=== PATIENT | female | born 1975 | race Caucasian/White ===

== ENCOUNTER 2021-02-08 09:53 | Outpatient (REF) | payer BC, SELFPAY ==
--- NOTE | ~2021-02-08 | MM_ITS ---
EXAMINATION: MM SCREENING DIGITAL BREAST TOMOSYNTHESIS, BILATERAL CLINICAL INFORMATION: Screening. Asymptomatic. The lifetime risk of breast cancer based on the Tyrer-Cuzick Model is 11%. COMPARISON: Mammography: 12/15/2019, 07/21/2018, 06/12/2017, 06/03/2016 TECHNIQUE: Digital breast tomosynthesis is performed in both the craniocaudal and mediolateral oblique views along with computer-aided detection (CAD). Synthesized 2D images are generated from the tomosynthesis. FINDINGS: There are scattered areas of fibroglandular density (ACR BI-RADS breast composition Category b). There are no significant masses, abnormal calcifications, or other abnormalities. Parenchymal pattern is similar to prior studies. No developing density. The skin contours are smooth. No significant changes. MM/MM tomosynthesis screening BI IMPRESSION: No mammographic evidence of malignancy. ASSESSMENT: BI-RADS 1: Negative RECOMMENDATION: Routine annual mammography screening. This patient's information was entered into a reminder system with a target due date for their next mammogram.
== END 2021-02-08 09:54 | disposition home or self-care (01) ==
LOC: HO.MAMMO 09:53
PROVIDERS: PCP Student in an Organized Health Care Education/Training Program; Visit Provider Student in an Organized Health Care Education/Training Program
DX: Z12.31 Encounter for screening mammogram for malignant neoplasm of breast (principal)
CPT/HCPCS: 77063; 77067

== ENCOUNTER 2022-02-24 12:49 | Outpatient (REF) | payer BC, SELFPAY ==
--- NOTE | ~2022-02-24 | MM_ITS ---
EXAMINATION: MM SCREENING DIGITAL BREAST TOMOSYNTHESIS, BILATERAL CLINICAL INFORMATION: Screening. Asymptomatic. The lifetime risk of breast cancer based on the Tyrer-Cuzick Model is 16%. COMPARISON: Mammography: 02/08/2021, 12/15/2019, 07/21/2018 TECHNIQUE: Digital breast tomosynthesis is performed in both the craniocaudal and mediolateral oblique views along with computer-aided detection (CAD). Synthesized 2D images are generated from the tomosynthesis. FINDINGS: There are scattered areas of fibroglandular density (ACR BI-RADS breast composition Category b). There are no significant masses, abnormal calcifications, or other abnormalities. Parenchymal pattern borders on predominantly fatty. Background stromal markings are stable. No significant changes. MM/MM tomosynthesis screening BI IMPRESSION: No mammographic evidence of malignancy. ASSESSMENT: BI-RADS 1: Negative RECOMMENDATION: Routine annual mammography screening. This patient's information was entered into a reminder system with a target due date for their next mammogram.
== END 2022-02-24 12:50 | disposition home or self-care (01) ==
LOC: HO.MAMMO 12:49
PROVIDERS: Visit Provider Student in an Organized Health Care Education/Training Program
DX: Z12.31 Encounter for screening mammogram for malignant neoplasm of breast (principal)
CPT/HCPCS: 77063; 77067

== ENCOUNTER 2023-03-11 11:35 | Outpatient (REF) | payer OTHER, SELFPAY ==
[2023-03-12 10:54] LABS: Lyme Abs Screen <0.90 index
[2023-03-17 02:34] LABS: IgA 180 mg/dL (47-310); IgG 1385 mg/dL (600-1640); IgM 48 mg/dL (50-300)
== END 2023-03-11 11:36 | disposition home or self-care (01) ==
LOC: HO.LAB 11:35
PROVIDERS: PCP Internal Medicine; Visit Provider Psychiatry & Neurology Neurology
DX: G62.9 Polyneuropathy, unspecified (principal)
CPT/HCPCS: 36415; 82784; 86334; 86617; 86618

== ENCOUNTER 2023-03-24 09:04 | Outpatient (REF) | payer OTHER, SELFPAY | END 2023-03-24 09:05 | disposition home or self-care (01) | LOC: HO.MAMMO 09:04 | PROVIDERS: PCP Internal Medicine; Visit Provider Internal Medicine | DX: Z12.31 Encounter for screening mammogram for malignant neoplasm of breast (principal) | CPT/HCPCS: 77063; 77067 ==

== ENCOUNTER → 2023-03-24 09:45 | Outpatient (BNV) | payer OTHER, SELFPAY | PROVIDERS: PCP Internal Medicine; Visit Provider Radiology Diagnostic Radiology | DX: Z12.31 Encounter for screening mammogram for malignant neoplasm of breast (principal) | CPT/HCPCS: 77063; 77067 ==

== ENCOUNTER 2024-03-15 08:12 | Outpatient (AMB) | payer OTHER, SELFPAY ==
--- NOTE | 2024-03-15 08:26 | MHC.OFFVIS ---
Vital Signs 03/15/24 08:35 Height 4 ft 8 in Weight 127 lb BMI 28.5 BP 120/78 Intake Visit Reasons: annual/Menopause ?/DO NOT RS x 2 Intake Note: Patient experiencing menopause symptoms last few months, tingling in legs, mood swings, brain fog, occasional heat flashes. Last pap smear approx. 2 years ago, normal pap smears. Regulatory Analyst: Regulatory Analyst Present (Maggy) Accompanied by: Self / Same As Patient Allergies doxepin [DOXEPIN] Allergy (Severe, Verified 03/15/24 08:34) THROAT SWELLING Penicillins Allergy (Verified 03/15/24 08:34) Itching SEAFOOD Allergy (Severe, Uncoded 12/14/19 17:02) HIVES, THROAT SWELLING seafood Allergy (Unknown, Uncoded 03/15/24 08:34) Anaphylaxis HPI Comments Details: Presenting for annual exam complaining of irregular menstrual cycles over the last few months Last mammogram was in 03/20 BI-RADS 2, the patient is scheduled for another screening mammogram on 03/27 No previous screening colonoscopy Last co testing? PFSH Medical History Herpes Surgical History Hx of cholecystectomy Family History Paternal Aunt Breast cancer Father Thyroid cancer Mother Bladder cancer Female Reproductive History Menstrual Duration of menses: <3 days Date of last menstrual period: 03/03/24 Total pregnancies: 0 Date of Mammogram: 03/24/23 (bi rad 1) Review of Systems Const All systems reviewed & are unremarkable except as noted in HPI and below Card Reports as per HPI Resp Reports as per HPI GI Reports as per HPI and Reports no additional complaints Reports as per HPI Physical Exam Const General: cooperative, healthy appearing and comfortable Chest Chest palpation & inspection: normal inspection of the chest and normal palpation of entire chest wall Breast/axilla inspection: normal inspection of the breasts and normal inspection of the axillae Breast/axilla palpation: normal palpation of the breasts, normal palpation of the axillae and no axillary lymphadenopathy Resp Effort & Inspection: normal respiratory effort Auscultation: clear to auscultation bilaterally Percussion: percussion normal Cardio Palpation: normal PMI Rate: regular rate Rhythm: regular rhythm Heart sounds: no murmurs and no rubs Peripheral pulses: Peripheral pulses 2+ throughout GI Inspection: Yes normal to inspection Palpation (GI): Soft to palpation, nontender, no guarding, not rigid and No hepatosplenomegaly present Percussion: Yes normal to percussion Auscultation: normal bowel sounds Rectal Exam - Female: deferred General: Yes bladder normal to palpation External Female Exam: No lesion Speculum Exam - Vagina: normal appearance of the vagina, normal palpation, normal vaginal discharge and not erythematous Speculum Exam - Cervix: normal appearance of the cervix and normal palpation Bimanual exam- vagina & uterus: normal bimanual exam, normal palpation, uterine size normal, bladder normal to palpation, consistency normal and normal palpation Bimanual Exam- Adnexa, other: normal adnexae, no masses and no tenderness Assessment & Plan Assessment & Plan (1) Well woman exam: Code(s): Z01.419 - Encounter for gynecological examination (general) (routine) without abnormal findings Category: Medical Plan: Co testing done. Counseled the patient about the recommended dietary allowance of 1200 mg of Calcium & 600 IU of vitamin D. Mammogram scheduled on 03/27/2024. The patient was referred to GI for screening colonoscopy . The patient was instructed to perform monthly self-breast exams and schedule annual exam in a year. All questions answered and the patient verbalized understanding. (2) Abnormal uterine bleeding (AUB): Code(s): N93.9 - Abnormal uterine and vaginal bleeding, unspecified Category: Medical Plan: Co testing done, GC and chlamydia taken CBC, TSH, FSH/LH, HCG, and pelvic ultrasound ordered. Discussed with the patient the different causes of abnormal bleeding including thyroid disorders, uterine and ovarian pathology, endometrial hyperplasia, carcinoma and other potential causes. Discussed with the patient the work up including CBC (to r/o anemia), TSH, FSH/LH, pelvic Ultrasound, endometrial biopsy to r/o endometrial pathology. All questions answered and the patient verbalized understanding. Instructed the patient to schedule an appointment for an endometrial biopsy in 2 weeks. Orders: Orders HCG Quantitative Today N93.9 - Abnormal uterine and vaginal bleeding, unspecified Lutenizing Hormone Today N93.9 - Abnormal uterine and vaginal bleeding, unspecified Follicle Stimulating Hormone Today N93.9 - Abnormal uterine and vaginal bleeding, unspecified TSH reflex Free T4 Today N93.9 - Abnormal uterine and vaginal bleeding, unspecified Complete Blood Count no Diff Today N93.9 - Abnormal uterine and vaginal bleeding, unspecified US pelvic and transvaginal Today N93.9 - Abnormal uterine and vaginal bleeding, unspecified Referrals Gastroenterology Referral Z12.11 - Encounter for screening for malignant neoplasm of colon Coding Level of Care Code Est Pt Level 3 (35407) New Pt Prev Care 40-64y(72332) Diagnoses Well woman exam Z01.419 Abnormal uterine bleeding (AUB) N93.9
[2024-03-15 08:35] VITALS: BP 120/78; BMI 28.5
== END 2024-03-15 08:54 | disposition home or self-care (01) ==
PROVIDERS: PCP Internal Medicine; Visit Provider Obstetrics & Gynecology
DX: Z01.419 Encounter for gynecological examination (general) (routine) without abnormal findings (principal); N93.9 Abnormal uterine and vaginal bleeding, unspecified
CPT/HCPCS: 99213; 99386; 99459

== ENCOUNTER 2024-03-15 08:12 | Outpatient (REF) | payer OTHER, SELFPAY ==
[2024-03-15 09:57] LABS: Hematocrit 40.8 % (37.0-47.0); Hemoglobin 14.5 g/dl (12.0-16.0); Mean Corpuscular HGB Conc 35.5 g/dl (31.0-35.0); Mean Corpuscular Hemoglobin 30.9 pg (27.0-33.0); Platelet Count 246 X10*3/uL (160-400); Red Blood Count 4.69 X10*6/uL (4.20-5.50); Red Cell Distribution Width 12.1 % (11.0-16.0); White Blood Count 5.1 X10*3/uL (4.8-10.8)
[2024-03-15 10:43] LABS: HCG Quantitative < 2 mIU/mL; TSH reflex Free T4 0.96 uIU/mL (0.32-4.0)
[2024-03-15 18:34] LABS: CT PCR NOT DETECTED (Not Detect.); NG PCR NOT DETECTED (Not Detect.)
[2024-03-16 09:23] LABS: Follicle Stimulating Hormone 17.3 mIU/mL
[2024-03-16 10:54] LABS: HPV 16,18/45 See PAP report
== END 2024-03-15 08:13 | disposition home or self-care (01) ==
LOC: HO.LNP 08:12
PROVIDERS: PCP Internal Medicine; Visit Provider Obstetrics & Gynecology
DX: Z01.419 Encounter for gynecological examination (general) (routine) without abnormal findings (principal); N93.9 Abnormal uterine and vaginal bleeding, unspecified
CPT/HCPCS: 83001; 83002; 84443; 84702; 85027; 87491; 87591; 87624; 88175

== ENCOUNTER 2024-03-15 09:07 | Outpatient (REF) | payer OTHER, SELFPAY | END 2024-03-15 09:08 | disposition home or self-care (01) | LOC: HO.LAB 09:07 | PROVIDERS: PCP Internal Medicine; Visit Provider Obstetrics & Gynecology | DX: Z13.89 Encounter for screening for other disorder (principal) ==

== ENCOUNTER 2024-03-16 13:40 | Outpatient (REF) | payer OTHER, SELFPAY | END 2024-03-16 13:41 | disposition home or self-care (01) | LOC: HO.HMGCX 13:40 | PROVIDERS: PCP Internal Medicine; Visit Provider Obstetrics & Gynecology | DX: N93.9 Abnormal uterine and vaginal bleeding, unspecified (principal) | CPT/HCPCS: 76830; 76856 ==

== ENCOUNTER 2024-03-27 08:47 | Outpatient (REF) | payer OTHER, SELFPAY | END 2024-03-27 08:48 | disposition home or self-care (01) | LOC: HO.MAMMO 08:47 | PROVIDERS: PCP Internal Medicine; Visit Provider Internal Medicine | DX: Z12.31 Encounter for screening mammogram for malignant neoplasm of breast (principal) | CPT/HCPCS: 77063; 77067 ==

== ENCOUNTER → 2024-03-27 09:00 | Outpatient (BNV) | payer OTHER, SELFPAY | PROVIDERS: PCP Internal Medicine; Visit Provider Internal Medicine | DX: Z12.31 Encounter for screening mammogram for malignant neoplasm of breast (principal) | CPT/HCPCS: 77063; 77067 ==

== ENCOUNTER 2024-04-27 08:57 | Outpatient (REF) | payer OTHER, SELFPAY ==
--- OUTSIDE RECORDS SUMMARY | 2024-04-27 12:50 | XMS_ITS | Encounter Summary ---
Author Organization [employer] Address [address] [place] [address] [address] [place] [address] Care Team Providers Care Wilton Weaver Name Role Phone Katie Mcallister MD Primary Care Provider Encounter Details Date Type Department Care Team (Late st Contact Info) Description 03/05/2022 Abstract [facility] [address] [place] [address] Provider, MD Racheal Social History Tobacco Use Types Packs/Day Years Used Date Smoking Tobacco: Never Assessed Comments Unknown Sex and Gender Information Value Date Recorded Sex Assigned at Female 01/26/2022 10:20 AM EDT Legal Sex Female 10:20 AM EDT Gender Identity Female 01/26/2022 10:20 AM EDT Sexual Orientation Straight 01/26/2022 10 :20 AM EDT documented as of this encounter Plan of Treatment Not on file documented as of this encounter Visit Diagnoses Not on filedocumented in this encounter Care Teams Wilton Weaver Relationship Specialty Start Date End Date Katie Mcallister MD [address] [place] [address] PCP - General Family Medicine 03/11/12 07/20/23 documented as of this encounter
--- OUTSIDE RECORDS SUMMARY | 2024-04-27 12:50 | XMS_ITS | Clinical Summary ---
Author Organization [employer] Address [address] [place] [address] [address] [place] [address] Care Team Providers Care Dipper Machine Operator Name Role Phone Unavailable Primary Care Provider Unavailabl e Social History Tobacco Use Types Packs/Day Years Used Date Smoking Tobacco: Never Assessed Comments Unknown Sex and Gender Information Value Date Recorded Sex Assigned at Female 01/26/2022 10:20 AM EDT Legal Sex Female 10:20 AM EDT Gender Identity Female 01/26/2022 10:20 AM EDT Sexual Orientation Straight 01/26/2022 10 :20 AM EDT Last Filed Vital Signs Vital Sign Reading Time Taken Comments Blood Pressure 126/84 01/22/2022 12:10 AM EDT Pulse 80 01/22/2022 12:10 AM EDT Temperature - - Respiratory Rate - - Oxygen Saturation - - Inhaled Oxygen Concentration - - Weight 58.1 kg (128 lb) 01/22/2022 12:10 AM EDT Height 144.5 cm (4' 8.9 ) 01/22/2022 12:10 AM ED T Body Mass Index 27.79 01/22/2022 12:10 AM EDT Plan of Treatment Health Maintenance Due Date Last Done Comments CT Colonography 1975 Colonoscopy 1975 Colorectal Cancer Screening 1975 Depression Screening 1975 FIT DNA/Cologuard 1975 FIT 1975 FOBT 1975 Sigmoidoscopy 1975 Alcohol/Substance Use Screening 1987 Tobacco Screening 1987 Family Planning (PISQ) 1990 Hepatitis B Vaccines (1 of 3 - 19+ 3-dose series) 1994 Pap Smear 1996 Cervical Cancer Screening 2005 HPV/Cotest 2005 COVID-19 Vaccine ( season) 2023 05/30/2021, 07/02/2020 Influenza Vaccine (#1) 2023 Mammogram 02/25/2024 02/24/2022, 01/27, 12/18/2019, Additional history exists Zoster Vaccines (1 of 2) 2025 DTaP/Tdap/Td Vaccines (2 - Td or Tdap) 08/19/2027 08/18/2017 RSV Patients and Patients Aged 60 years or older (1 - 1-dose 75+ series) 2050 HIB Vaccines Aged Out No longer eligi ble based on patient's age to complete this topic HPV Vaccines Aged Out No longer eligi ble based on patient's age to complete this topic Hepatitis A Vaccines Aged Out No long er eligible based on patient's age to complete this topic IPV Vaccines Aged Out No longer eligi ble based on patient's age to complete this topic Meningococcal Vaccine Aged Out No kelsea trinh eligible based on patient's age to complete this topic Pneumococcal Vaccine: Pediatrics (0 to 5 Years) and At-Risk Patients (6 to 49) Years) Aged Out No longer eligible based on patient's age to complete this topic RSV under 20 months Aged Out No longe r eligible based on patient's age to complete this topic Rotavirus Vaccines Aged Out No longer eligible based on patient's age to complete this topic Procedures Procedure Name Priority Date/Time Associated Diagnosis Comments BI MAMMOGRAM SCREENING TOMOSYNTHESIS BILATERAL Routine 02/24/2022 1:10 PM EST from Last 3 Months or Most Recently Relevant to Health Maintenance Results * BI Mammogram Screening Tomosynthesis Bilateral (02/24/2022 1:10 PM EST) Anatomical Region Laterality Modality Breast Bilateral Mammography 02/24/2022 1:10 PM EST Narrative 02/26/2022 8:03 AM EST ? [facility] ? [address] ?[place] [address] ? Mammography Report ? Signed ? Patient: Doan Mata,Aitza M ?MR#: [id number] ?? [id number] ? : 1975 ?Acct:[id number] ? Age/Sex: 46 / F ?ADM Date: 11/29/22 ? Loc: HO.MAMMO ? Attending Dr: Katie Mcallister MD ? Ordering Physician: Katie Mcallister MD ?Results: 1Negati ?? ve ? Date of Service: 02/24/22 ?Follow Up: 1 Year From Orig ?? inal Mammogram ? Procedure(s): MM tomosynthesis screening BI ?? Accession Number(s): [id number] ? cc: Katie Mcallister MD ? EXAMINATION: ?? MM SCREENING DIGITAL BREAST TOMOSYNTHESIS, BILATERAL ? CLINICAL INFORMATION: ? Screening. Asymptomatic. ? The lifetime risk of breast cancer based on the Tyrer-Cuzick Model is ?? 16%. ? COMPARISON: ?? Mammography: 02/08/2021, 12/15/2019, 07/21/2018 ? TECHNIQUE: ?? Digital breast tomosynthesis is performed in both the craniocaudal and ?? mediolateral oblique views along with computer-aided detection (CAD). ?? Synthesized 2D images are generated from the tomosynthesis. ? FINDINGS: ?? There are scattered areas of fibroglandular density (ACR BI-RADS breast ?? composition Category b). ? There are no significant masses, abnormal calcifications, or other ?? abnormalities. ?? Parenchymal pattern borders on predominantly fatty. ?? Background stromal markings are stable. No significant changes. ? MM/MM tomosynthesis screening BI ?? IMPRESSION: ?? No mammographic evidence of malignancy. ? ASSESSMENT: ? BI-RADS 1: Negative ? RECOMMENDATION: ?? Routine annual mammography screening. ? This patient's information was entered into a reminder system with a ?? target due date for their next mammogram. ? Dictated By: ?Ric John MD ? Signed By: ?<Electronically signed by Ric John MD in OV> ?02/26/22 08 ? DD/ 1310 ? TD/TT: ? Operational Meteorologist: SWIFT ? Procedure Note Donrasheedater, Image - 02/28/2022 [facility] [address] [place] [address] Mammography Report Signed Patient: Alysa Mcdonald MMR#: [id number] : 1975Acct:[id number] Age/Sex: 46 / FADM Date: 02/24/22 Loc: HO.MAMMO Attending Dr: Katie Mcallister MD Ordering Physician: Katie Mcallister MDResults: 1Negati ve Date of Service: 02/24/22Follow Up: 1 Year From Orig inal Mammogram Procedure(s): MM tomosynthesis screening BI Accession Number(s): [id number] cc: Katie Mcallister MD EXAMINATION: MM SCREENING DIGITAL BREAST TOMOSYNTHESIS, BILATERAL CLINICAL INFORMATION: Screening. Asymptomatic. The lifetime risk of breast cancer based on the Tyrer-Cuzick Model is 16%. COMPARISON: Mammography: 02/08/2021, 12/15/2019, 07/21/2018 TECHNIQUE: Digital breast tomosynthesis is performed in both the craniocaudal and mediolateral oblique views along with computer-aided detection (CAD). Synthesized 2D images are generated from the tomosynthesis. FINDINGS: There are scattered areas of fibroglandular density (ACR BI-RADS breast composition Category b). There are no significant masses, abnormal calcifications, or other abnormalities. Parenchymal pattern borders on predominantly fatty. Background stromal markings are stable. No significant changes. MM/MM tomosynthesis screening BI IMPRESSION: No mammographic evidence of malignancy. ASSESSMENT: BI-RADS 1: Negative RECOMMENDATION: Routine annual mammography screening. This patient's information was entered into a reminder system with a target due date for their next mammogram. Dictated By: Ric John MD Signed By: <Electronically signed by Ric John MD in OV> 02/26/22 0801 DD/ 1310 TD/TT: Operational Meteorologist: SWIFT us Katie Mcallister MD IMG BI PROCEDURES Final Result from Last 3 Months or Most Recently Relevant to Health Maintenance
== END 2024-04-27 08:58 | disposition home or self-care (01) ==
LOC: HO.LNP 08:57
PROVIDERS: PCP Internal Medicine; Visit Provider Obstetrics & Gynecology
DX: N93.9 Abnormal uterine and vaginal bleeding, unspecified (principal)
CPT/HCPCS: 58100; 88305

== ENCOUNTER 2024-05-18 11:20 | Outpatient (AMB) | payer OTHER, SELFPAY ==
--- NOTE | 2024-05-18 11:23 | A.OFFVIS_ITS ---
Vital Signs 05/18/24 11:28 Height 4 ft 8 in Weight 127 lb BMI 28.5 Intake Visit Reasons: EMB results Fur Joiner: Fur Joiner Present Accompanied by: Self / Same As Patient Allergies doxepin [DOXEPIN] Allergy (Severe, Verified 05/18/24 11:25) THROAT SWELLING Penicillins Allergy (Verified 05/18/24 11:25) Itching SEAFOOD Allergy (Severe, Uncoded 12/14/19 17:02) HIVES, THROAT SWELLING seafood Allergy (Unknown, Uncoded 03/15/24 08:34) Anaphylaxis HPI Comments Details: The patient is presenting for follow-up to discuss the results of her abnormal uterine bleeding workup and options of treatment. The following workup was done.: H&H= 14.5/40.8 TSH, hCG, GC and chlamydia were negative. FSH = 17.3 in the premenopausal range, LH=15 in the postmenopausal Endometrial biopsy pathology showed the following: Endometrium, biopsy: Fragments of inactive endometrium with stromal and glandular breakdown; negative for atypia, hyperplasia or malignancy Co testing was done was negative. Mammogram was BI-RADS 1. Pelvic ultrasound showed the following: Uterus: The uterus is anteverted and measures 7.6 x 3.5 x 4.9 cm. The double wall endometrial thickness is 0.7 mm. The uterus is smooth in contour and has normal myometrial echogenicity. Left intramural fibroid measures 1.2 cm. Adnexa: Both ovaries are visualized. There is normal color flow to the adnexa. There is no ovarian torsion. There is no pelvic ascites or fluid collection. Right ovary measures 2.8 x 2.4 x 1.5 cm. Corpus luteum measuring 1.3 cm is noted. Left ovary measures 2.3 x 1.1 x 1.3 cm. [facility] Medical History Herpes Surgical History Hx of cholecystectomy Family History Paternal Aunt Breast cancer Father Thyroid cancer Mother Bladder cancer Review of Systems Const All systems reviewed & are unremarkable except as noted in HPI and below Reports as per HPI and Reports no additional complaints GI Reports no additional complaints Reports no additional complaints Physical Exam Vital Signs: BMI result Body Mass Index 28.5 Assessment & Plan Assessment & Plan (1) Abnormal uterine bleeding (AUB): Code(s): N93.9 - Abnormal uterine and vaginal bleeding, unspecified Category: Medical Plan: Discussed with the patient the results of the work up done and options of treatment including BCP's, Mirena IUD, endometrial ablation and hysterectomy. All pros, cons, risks and benefits if each option was discussed with the patient and the patient decided to think about it and get back to us. All questions answered the patient verbalized understanding. (2) Uterine myoma: Code(s): D25.9 - Leiomyoma of uterus, unspecified Category: Medical Plan: Discussed with the patient the findings on pelvic ultrasound & the risk of myosarcoma; discussed with the patient the options of treatment including expectant management versus hysterectomy; the pros and cons, risks benefits of each approach were discussed with the patient including the fact that in cases of myosarcoma, surgical treatment can lead to early diagnosis and positively affects the prognosis; after further discussion, the patient decided to proceed with expectant management. Will repeat pelvic ultrasound periodically. Instructions given to patient to call in case any of the following occurs: pressure symptoms, abnormal uterine bleeding, pelvic pain; and to schedule a six-months pelvic ultrasound (order placed) and a follow-up appointment . All questions answered, the patient verbalized understanding and agreed with the plan . Orders: Orders US pelvic and transvaginal 6 Months D25.9 - Leiomyoma of uterus, unspecified Coding Level of Care Code Est Pt Level 3 (40464) Diagnoses Abnormal uterine bleeding (AUB) N93.9 Uterine myoma D25.9
[2024-05-18 11:28] VITALS: BMI 28.5
--- OUTSIDE RECORDS SUMMARY | 2024-05-18 12:39 | XMS_ITS | Clinical Summary ---
Author Organization [facility] Address [address] [place] [address] Phone Care Team Providers Care Caseworker Intake Name Role Phone Unavailable Primary Care Provider Unavailabl e Encounters Date Type Department Care Team Description 05/18/2024 8:30 AM EST Hospital Encounter [facility] MRI [address] [place] [address] Pain in left ankle and joints of left foot from Last 3 Months Social History Tobacco Use Types Packs/Day Years Used Date Smoking Tobacco: Never Assessed Comments Unknown Sex and Gender Information Value Date Recorded Sex Assigned at Not on file Legal Sex Female 8:25 AM EST Gender Identity Not on file Sexual Orientation Not on file Plan of Treatment Health Maintenance Due Date Last Done Comments Hepatitis B Vaccines (1 of 3 - 19+ 3-dose series) 1994 Cervical Cancer Screening: P ap Smear 1996 COVID-19 Vaccine (2023-2 5 season) 2023 05/30/2021, 07/02/2020 Influenza Vaccine (#1) 2023 Breast Cancer Screening 02/25/2024 02/24/2022 Colorectal Cancer Screening: Colonoscopy 05/18/2024 Depression Screening 05/18/2024 HIV Screening 05/18/2024 Hepatitis C Screening 05/18/2024 Social Influencers of Health Screening 05/18/2024 DTaP,Tdap,and Td Vaccines (2 - Td or Tdap) 08/19/2027 08/18/2017 HIB Vaccines Aged Out No longer eligi [...] on patient's age to complete this topic MMR Vaccines Aged Out No longer eligi ble based on patient's age to complete this topic Meningococcal ACWY Vaccine Aged Out N o longer eligible based on patient's age to complete this topic Meningococcal B Vacine Aged Out No lo nger eligible based on patient's age to complete this topic Pneumococcal Vaccine: Pediatrics (0 to 5 Years) and At-Risk Patients (6 to 64 Years) Aged Out No longer eligible b ased on patient's age to complete this topic RSV Immunization Patients Under 20 months Aged Out No longer eligible b ased on patient's age to complete this topic Varicella Vaccines Aged Out No longer eligible based on patient's age to complete this topic
--- OUTSIDE RECORDS SUMMARY | 2024-05-18 12:39 | XMS_ITS | Clinical Summary ---
Author Organization [employer] Address [address] [place] [address] [address] [place] [address] Care Team Providers Care Equipment Sales Specialist Name Role Phone Unavailable Primary Care Provider [...] EST Narrative 02/26/2022 8:03 AM EST ? [facility] ? [address] ?[place] [address] ? Mammography Report ? Signed ? Patient: Doan Mata,Aitza M ?MR#: [id number] ?? [id number] ? : 1975 ?Acct:[id number] ? Age/Sex: 46 / F ?ADM Date: 11/29/22 ? Loc: HO.MAMMO ? Attending Dr: Katie Mcallister MD ? Ordering Physician: Katie Mcallister MD ?Results: 1Negati ?? ve ? Date of Service: 02/24/22 ?Follow Up: 1 Year From Orig ?? inal Mammogram ? Procedure(s): MM tomosynthesis screening BI ?? Accession Number(s): [id number] ? cc: Katie Mcallister MD ? EXAMINATION: [...] 08 ? DD/ 1310 ? TD/TT: ? Drill Sergeant: SWIFT ? Procedure Note Donrasheedater, Image - 02/28/2022 [facility] [address] [place] [address] Mammography Report Signed Patient: Alysa Mcdonald MMR#: [id number] : 1975Acct:[id number] Age/Sex: 46 / FADM Date: 02/24/22 Loc: HO.MAMMO Attending Dr: Katie Mcallister MD Ordering Physician: Katie Mcallister MDResults: 1Negati ve Date of Service: 02/24/22Follow Up: 1 Year From Orig inal Mammogram Procedure(s): MM tomosynthesis screening BI Accession Number(s): [id number] cc: Katie Mcallister MD EXAMINATION: MM SCREENING [...] in OV> 02/26/22 0801 DD/ 1310 TD/TT: Drill Sergeant: SWIFT us Katie Mcallister MD IMG BI PROCEDURES Final Result from Last 3 Months or Most Recently Relevant to Health Maintenance
--- OUTSIDE RECORDS SUMMARY | 2024-05-18 12:39 | XMS_ITS | Encounter Summary ---
[facility] Organization [facility] Address [address] [place] [address] Care Team Providers Care Filter Changer Name Role Phone Unavailable Primary Care Provider Unavailabl e Reason for Referral * Imaging (Routine) - Pending Review Specialty Diagnoses / Procedures Referred By Contac t Referred To Contact Radiology Diagnoses Pain in left ankle and joints of left foot Procedures MR Ankle wo Contrast Left Shirley Jon MD [address] [address] Phone: tel: [facility] Referral ID Status Reason Start Date Expiration Date V isits Requested Visits Authorized [id number] Pending Review 05/18/2024 05/18/2025 1 1 Reason for Visit * Imaging (Routine) - Pending Review Specialty Diagnoses / Procedures Referred By Contmarcello bahena Referred To Contact Radiology Diagnoses Pain in left ankle and joints of left foot Procedures MR Ankle wo Contrast Left Shirley Jon MD [address] [place] [address] Phone: tel: [facility] Referral ID Status Reason Start Date Expiration Date V isits Requested Visits Authorized [id number] Pending Review 05/18/2024 05/18/2025 1 1 Encounter Details Date Type Department Care Team (Latest Contact Info) Description 05/18/2024 8:30 AM EST Hospital Encounter [facility] MRI [address] [place] [id number] Pain in left ankle and joints of left foot Social History Tobacco Use Types Packs/Day Years Used Date Smoking Tobacco: Never Assessed Comments Unknown Sex and Gender Information Value Date Recorded Sex Assigned at Not on file Legal Sex Female 8:25 AM EST Gender Identity Not on file Sexual Orientation Not on file documented as of this encounter Plan of Treatment Pending Results Name Type Priority Associated Diagnoses Date /Time MR Ankle wo Contrast Left Imaging Routine Pain in left ankle and joints of left foot 05/18/2024 9:37 AM EST Scheduled Orders Name Type Priority Associated Diagnoses Orde r Schedule MR Ankle wo Contrast Left Imaging Routine Pain in left ankle and joints of left foot Once for 1 Occurrences starting 05/18/2024 until 05/18/2024 documented as of this encounter Visit Diagnoses Diagnosis Pain in left ankle and joints of left foot documented in this encounter
--- OUTSIDE RECORDS SUMMARY | 2024-05-18 12:39 | XMS_ITS | Encounter Summary ---
Author Organization [employer] Address [address] [place] [address] [address] [place] [address] Care Team Providers Care Epic Kaleidoscope Analyst Name Role Phone Katie Mcallister MD Primary Care Provider [phone] Encounter Details Date Type Department Care Team (Late st Contact Info) Description 03/05/[address] [facility] MEDICINE [address] [place] [address] Provider, MD Racheal Social History Tobacco Use [...] on filedocumented in this encounter Care Teams Epic Kaleidoscope Analyst Relationship Specialty Start Date End Date Katie Mcallister MD [address] [place] [address] PCP - General Family Medicine 03/11/12 07/20/23 documented as of this encounter
== END 2024-05-18 12:01 | disposition home or self-care (01) ==
PROVIDERS: PCP Internal Medicine; Visit Provider Obstetrics & Gynecology
DX: N93.9 Abnormal uterine and vaginal bleeding, unspecified (principal); D25.9 Leiomyoma of uterus, unspecified
CPT/HCPCS: 99213

== ENCOUNTER → 2024-05-18 11:20 | Outpatient (BNVA) | payer OTHER, SELFPAY | PROVIDERS: PCP Internal Medicine; Visit Provider Obstetrics & Gynecology ==

== ENCOUNTER 2024-10-05 09:58 | Outpatient (AMB) | payer OTHER, SELFPAY ==
--- NOTE | 2024-10-05 10:05 | A.OFFVIS_ITS ---
Vital Signs 10/05/24 10:13 Height 4 ft 8 in Weight 127 lb BMI 28.5 BP 114/58 L Blood Pressure Location Rt brachial Position Sitting Pulse 82 Pulse Source Pulse Oximeter Pulse Oximetry (%) 98 Oxygen Delivery Method Room Air Intake Visit Reasons: colo screening Intake Note: New pt for initial colo screening. CC; Pt denies any GI sx or concerns at this time. Belt Worker Required: No Accompanied by: Self / Same As Patient Allergies doxepin (DOXEPIN) Allergy (Severe, Verified 05/18/24 11:25) THROAT SWELLING Penicillins Allergy (Verified 05/18/24 11:25) Itching SEAFOOD Allergy (Severe, Uncoded 12/14/19 17:02) HIVES, THROAT SWELLING seafood Allergy (Unknown, Uncoded 03/15/24 08:34) Anaphylaxis HPI HPI colo screening: Details: Patient is a 49-year-old female with PMH of HSV. Referred by CORE MACHINE TENDER for pre colonoscopy screening. She reports regular bowel movements but experiences constipation during her menstrual cycle, which has been ongoing for years. She manages this by increasing water intake to 64 ounces daily and incorporating fiber into her diet. Alysa has tried MiraLax for a few days in the past, which helped. She also tried magnesium supplements but stopped after experiencing headaches. Shares she typically avoids medication. She experiences bright red blood in her stools, which she attributes to a hemorrhoid she has had for 10-11 years. The bleeding worsens with constipation or frequent bowel movements. Alysa reports rare episodes of heartburn, usually triggered by consuming unusual foods. She denies any difficulty swallowing. Her weight has been stable between 127-130 pounds since 2023, following intentional weight loss while working with a enrollment management vice president for two years. The patient's hemorrhoid is consistently present but varies in swelling. She mentions a history of gastritis with one severe attack in the past, triggered by mandarin juice, which left her bedridden for a week. She reports a history of palpitations many years ago that required medication b ut states that things are good now. Patient denies: fever/chills, n/v, appetite changes, regurgitation, dysphasia, unintentional wt loss or ab pain. Social hx: -denies ETOH use -denies recreational drug use -non-smoker - family hx as below -denies personal hx of CA - denies significant cardiopulmonary history -tolerated anesthesia in the past without difficulty. [facility] Medical History (Updated 10/05/24 @ 17:25 by Diana Asencio CNP) Overweight (BMI 25.0-29.9) Hemorrhoid Acid reflux Constipation Colon cancer screening Herpes Surgical History Hx of cholecystectomy Family History Paternal Aunt Breast cancer Father Thyroid cancer Mother Bladder cancer Review of Systems Const Reports as per HPI ENT Reports as per HPI Card Reports as per HPI Resp Reports as per HPI GI Reports as per HPI Reports as per HPI Physical Exam Vital Signs: Last Vital Signs Pulse 82 10/05/24 10:13 BP 114/58 L 10/05/24 10:13 Pulse Ox 98 10/05/24 10:13 Oxygen Delivery Method Room Air 10/05/24 10:13 BMI result Body Mass Index 28.5 Const General: healthy appearing, no acute distress and well developed Nutritional Appearance: well nourished Orientation/consciousness: patient oriented x3 HEENT Head: Yes normal to inspection, Yes normocephalic and Yes atraumatic Face and sinus: Yes normal facial exam Eyes General: appearance normal, both eyes and all related structures Neck Neck: Yes normal visual inspection Resp Effort & Inspection: normal respiratory effort, able to speak in complete sentences, no tracheal deviation and symmetric chest movement Auscultation: clear to auscultation bilaterally Cardio Jugular venous distension: no JVD Rate: regular rate Rhythm: regular rhythm Heart sounds: S1 normal heart sound present, S2 normal heart sound present, no gallops and no murmurs GI Inspection: Yes normal to inspection, No distended and Yes obesity Palpation (GI): Soft to palpation, not firm, nontender and No hepatosplenomegaly present Auscultation: normal bowel sounds Rectal Exam - Female: visual inspection normal, normal sphincter tone and External hemorrhoid(s) present (X1 without inflammation/thrombosis) Neuro General: patient oriented x3 Gait exam (Neuro): Normal gait present Psych Appearance: grossly normal Mental Status: mental status grossly normal Speech and movement: Normal speech and movement present Affect: normal affect Attitude: cooperative Thought process: Normal thought process present Thought content: Normal thought content present Insight: Good insight present (Psych) Judgement: Good judgement present (Psych) Assessment & Plan Assessment & Plan (1) Colon cancer screening: Code(s): Z12.11 - Encounter for screening for malignant neoplasm of colon Category: Medical Plan: Due for index screening colonoscopy. No family history of colon cancer Medications: -prescriptions for laxative tablets and MiraLax sent to pharmacy; instructions for Gatorade purchase and clear liquid diet given. Patient educated on scheduling process, procedure preparation, including avoiding certain foods and ensuring clear liquid intake Advised on necessity for ride post-procedure due to sedation. (2) Constipation: Code(s): K59.00 - Constipation, unspecified Category: Medical Qualifiers: Constipation type: other constipation type Qualified Code(s): K59.09 - Other constipation Plan: Primarily associated with menstrual cycle - Recommended magnesium oxide OR citrate for constipation management. - Try MiraLax around menstrual cycle if needed. - If headaches occur with magnesium oxide, reduce dose or switch to magnesium citrate. Reinforced lifestyle modifications to promote regularity: -higher fiber diet, examples provided -adequate hydration with water -150 minutes of moderate intensity exercise per week (3) Acid reflux: Code(s): K21.9 - Gastro-esophageal reflux disease without esophagitis Category: Medical Qualifiers: Esophagitis presence: esophagitis presence not specified Qualified Code(s): K21.9 - Gastro-esophageal reflux disease without esophagitis Plan: Rare episodes of heartburn, usually with atypical foods, well-controlled. - Continue current management as symptoms are well-controlled. - Monitor for worsening of gastritis or reflux symptoms. - Patient declined upper endoscopy at this time. (4) Hemorrhoid: Code(s): K64.9 - Unspecified hemorrhoids Category: Medical Qualifiers: Hemorrhoid type: first degree Qualified Code(s): K64.0 - First degree hemorrhoids Plan: External hemorrhoid present for 10-11 years with bleeding during constipation or frequent bowel movements. - Prescribed higher strength hydrocortisone cream for flares, Apply up to twice daily during flares. - Educated on proper toilet paper use and avoiding wet wipes. (5) Overweight (BMI 25.0-29.9): Code(s): E66.3 - Overweight Category: Medical Plan: Brief nutritional counseling on weight management, BMI 28.5. - Recommend continued work with enrollment management vice president. - Discuss potential health risks associated with being overweight. - Encourage continued lifestyle modifications including diet and exercise. - Goal to reduce BMI through balanced nutrition and regular physical activity. Plan Follow-up after colonoscopy or sooner as needed Time: I spent a total of 60 minutes on the date of encounter which includes: Preparing to see the patient (reviewed previous documentation, test results and medical history) Performing a medically appropriate exam and/or evaluation Ordering medications, tests, and procedures Documenting clinical information in the health record Medications: New polyethylene glycol 3350 (Miralax) per colonoscopy prep instructions 238 grams PO ONCE 238 grams 0RF bisacodyl Take four tablets once for 1 day per colonoscopy instructions 5 mg PO ONCE 4 tabs 0RF 1 day hydrocortisone 2.5% Apply sparingly, up to twice daily during a flare 1 appl CA BID-QID PRN 30 grams 1RF hemorrhoids Coding Level of Care Code New Pt New Pt Level 5 (90776) Patient Type New Diagnoses Colon cancer screening Z12.11 Other constipation K59.09 Constipation type: other constipation type Gastroesophageal reflux disease, unspecified whether esophagitis present K21.9 Esophagitis presence: esophagitis presence not specified Grade I hemorrhoids K64.0 Hemorrhoid type: first degree Overweight (BMI 25.0-29.9) E66.3
[2024-10-05 10:13] VITALS: BP 114/58; PULSE 82; O2SAT 98; BMI 28.5
--- OUTSIDE RECORDS SUMMARY | 2024-10-05 10:34 | XMS_ITS | Clinical Summary ---
Author Organization [facility] Address [address] [place] [address] Phone Care Team Providers Care Ship Loader Name Role Phone Unavailable Primary Care Provider [...] Vaccine (2023-2 5 season) 2023 05/30/2021, 07/02/2020 Breast Cancer Screening 02/25/2024 02/24/2022 Colorectal Cancer Screening: Colonoscopy 05/18/2024 Depression Screening 05/18/2024 HIV Screening 05/18/2024 Hepatitis C Screening 05/18/2024 Social Influencers of Health Screening 05/18/2024 Influenza Vaccine (#1) 2024 DTaP,Tdap,and Td Vaccines (2 - Td or [...] age to complete this topic Meningococcal B Vaccine Aged Out No l onger eligible based on patient's age to complete this topic Pneumococcal Vaccine: Pediatrics (0 to 5 Years) and At-Risk Patients (6 to 49 Years) Aged Out No longer eligible b ased on patient's age to complete this topic RSV Immunization Patients Under 20 months Aged Out No longer eligible b ased on patient's age to complete this topic Varicella Vaccines Aged Out No longer eligible based on patient's age to complete this topic Insurance [facility]
--- OUTSIDE RECORDS SUMMARY | 2024-10-05 10:34 | XMS_ITS | Clinical Summary ---
Author Organization [employer] Address [address] [place] [address] [address] [place] [address] Care Team Providers Care Director Of Planning Name Role Phone Unavailable Primary Care Provider [...] 1975 FIT 1975 FOBT 1975 Sigmoidoscopy 1975 Disability Screening 1975 Alcohol/Substance Use Screening 1987 Tobacco Screening 1987 Family Planning (PISQ) 1990 Hepatitis B Vaccines (1 of 3 - 19+ 3-dose series) 1994 Pap Smear 1996 Cervical Cancer Screening 2005 HPV/Cotest 2005 COVID-19 Vaccine ( season) 2023 05/30/2021, 07/02/2020 Mammogram 02/25/2024 02/24/2022, 01/27, 12/18/2019, Additional history exists Influenza Vaccine (#1) 2024 Zoster Vaccines (1 of 2) 2025 DTaP/Tdap/Td [...] Years) and At-Risk Patients (6 to 49) Years Aged Out No longer eligible based on [...] PM EST Narrative 02/26/2022 8:03 AM EST [facility] [address] [place], [place] [address] Mammography Report Signed Patient: Doan AdolfoIonsaray Frazier MR#: [id number] : 1975 Acct:[id number] Age/Sex: 46 / F ADM Date: 02/24/22 Loc: MAMMO Attending Dr: Katie Mcallister MD Ordering Physician: Katie Mcallister MD Results: 1Negati ve Date of Service: 02/24/22 Follow Up: 1 Year From Orig ina Mammogram Procedure(s): MM tomosynthesis screening BI Accession Number(s): [id number] cc: Katie Mcallister MD EXAMINATION: MM SCREENING [...] in OV> 02/26/22 0801 DD/ 1310 TD/TT: Passport Application Examiner: SWIFT Procedure Note Donotuseinterpreter, Image - 02/28/2022 [facility] [address] [place] [address] Dr. [place], [place] [address] Mammography Report Signed Patient: Alysa Mcdonald MMR#: [id number] : 1975Acct:[id number] Age/Sex: 46 / FADM Date: 02/24/22 Loc: HO.MAMMO Attending Dr: Katie Mcallister MD Ordering Physician: Katie Mcallister MDResults: 1Negati ve Date of Service: 02/24/22Follow Up: 1 Year From Orig inal Mammogram Procedure(s): MM tomosynthesis screening BI Accession Number(s): [id number] cc: Katie Mcallister MD EXAMINATION: MM SCREENING [...] in OV> 02/26/22 0801 DD/ 1310 TD/TT: Passport Application Examiner: SWIFT us Katie Mcallister MD IMG BI PROCEDURES Final Result from Last 3 Months or Most Recently Relevant to Health Maintenance
== END 2024-10-05 11:09 | disposition home or self-care (01) ==
LOC: HO.HGI 09:58
PROVIDERS: PCP Internal Medicine; Visit Provider Nurse Practitioner Family
DX: K59.09 Other constipation (principal); K21.9 Gastro-esophageal reflux disease without esophagitis; K64.0 First degree hemorrhoids; E66.3 Overweight
CPT/HCPCS: 99205

== ENCOUNTER 2024-11-02 10:53 | Outpatient (REF) | payer OTHER, SELFPAY ==
--- NOTE | ~2024-11-02 | US_ITS ---
CLINICAL HISTORY: D25.9 - Leiomyoma of uterus, unspecified Ultrasound of the female pelvis Comparison: US/SR - US PELVIS TRANSABDOMINAL AND TRANSVAGINAL - 03/16/24 13:47 EST Technique: Grayscale ultrasound with assistance of color Doppler. Transabdominal scanning performed for overall anatomy. Transvaginal scanning performed for better anatomic delineation. Findings: Anteverted uterus measures 7.8 x 3.2 x 4.2 cm. Heterogeneous myometrium, no focal lesion or fibroid is seen. scar noted at the anterior lower uterine segment. Normal endometrium, 4 mm in thickness. Unremarkable cervix, subcentimeter nabothian cyst. Normal right ovary, 2.5 x 1.7 x 1.7 cm. No abnormal vascular flow. Normal left ovary, 2.0 x 1.7 x 1.6 cm. No abnormal vascular flow. No free fluid. Impression: Non-specific heterogeneous myometrium, no fibroid is visualized. This document has been electronically signed by: Mariana Dawn MD on 11/02/2024 16:21:24
--- OUTSIDE RECORDS SUMMARY | 2024-11-02 11:36 | XMS_ITS | Clinical Summary ---
Author Organization [facility] Address [address] [place] [address] Phone Care Team Providers Care Pre Sales Technical Engineer Name Role Phone Unavailable Primary Care Provider [...] 05/30/2021, 07/02/2020 Breast Cancer Screening 02/25/2024 02/24/2022 Depression Screening 03/29/2024 Colorectal Cancer Screening: Colonoscopy 05/18/2024 HIV Screening 05/18/2024 Hepatitis C Screening [...] patient's age to complete this topic Insurance [facility]
--- OUTSIDE RECORDS SUMMARY | 2024-11-02 11:36 | XMS_ITS | Clinical Summary ---
Author Organization [employer] Address [address] [place] [address] [address] [place] [address] Care Team Providers Care Janitorial Account Manager Name Role Phone Unavailable Primary Care Provider [...] Narrative 02/26/2022 8:03 AM EST [facility] [address] [place], [place] [address] Mammography Report Signed Patient: Doan AdolfoIonsaray Frazier MR#: [id number] : 1975 Acct:[id number] Age/Sex: 46 / F ADM Date: 02/24/22 Loc: MAMMO Attending Dr: Katie Mcallister MD Ordering Physician: Katie Mcallister MD Results: 1Negati ve Date of Service: 02/24/22 Follow Up: 1 Year From Orig ina Mammogram Procedure(s): MM tomosynthesis screening BI Accession Number(s): [id number] cc: Katie Mcallister MD EXAMINATION: MM SCREENING [...] in OV> 02/26/22 0801 DD/ 1310 TD/TT: Console Assembler: SWIFT Procedure Note Donotuseinterpreter, Image - 02/28/2022 [facility] [address] [place] [address] [place], [place] [address] Mammography Report Signed Patient: Alysa Mcdonald MMR#: [id number] : 1975Acct:[id number] Age/Sex: 46 / FADM Date: 02/24/22 Loc: HO.MAMMO Attending Dr: Katie Mcallister MD Ordering Physician: Katie Mcallister MDResults: 1Negati ve Date of Service: 02/24/22Follow Up: 1 Year From Orig inal Mammogram Procedure(s): MM tomosynthesis screening BI Accession Number(s): [id number] cc: Katie Mcallister MD EXAMINATION: MM SCREENING [...] in OV> 02/26/22 0801 DD/ 1310 TD/TT: Console Assembler: SWIFT us Katie Mcallister MD IMG BI PROCEDURES Final Result from Last 3 Months or Most Recently Relevant to Health Maintenance
== END 2024-11-02 10:54 | disposition home or self-care (01) ==
LOC: HO.US 10:53
PROVIDERS: PCP Internal Medicine; Visit Provider Obstetrics & Gynecology
DX: D25.9 Leiomyoma of uterus, unspecified (principal)
CPT/HCPCS: 76830; 76856

== ENCOUNTER → 2024-11-02 10:58 | Outpatient (BNV) | payer OTHER, SELFPAY | PROVIDERS: PCP Internal Medicine; Visit Provider Radiology Diagnostic Radiology | DX: N88.8 Other specified noninflammatory disorders of cervix uteri (principal) | CPT/HCPCS: 76830; 76856 ==

== ENCOUNTER 2024-11-23 07:50 | Outpatient (AMB) | payer OTHER, SELFPAY ==
--- OUTSIDE RECORDS SUMMARY | 2024-11-23 07:53 | XMS_ITS | Clinical Summary ---
Author Organization [facility] Address [address] [place] [address] Phone Care Team Providers Care Excelsior Machine Operator Name Role Phone Unavailable Primary [...] patient's age to complete this topic Insurance [facility]
--- OUTSIDE RECORDS SUMMARY | 2024-11-23 07:53 | XMS_ITS | Clinical Summary ---
Author Organization [employer] Address [address] [place] [address] [address] [place] [address] Care Team Providers Care Derrick Boat Operator Name Role Phone Unavailable Primary Care [...] Narrative 02/26/2022 8:03 AM EST [facility] [address] [place], [place] [address] Mammography Report Signed Patient: Doan AdolfoIonsaray Frazier MR#: [id number] : 1975 Acct:[id number] Age/Sex: 46 / F ADM Date: 02/24/22 Loc: MAMMO Attending Dr: Katie Mcallister MD Ordering Physician: Katie Mcallister MD Results: 1Negati ve Date of Service: 02/24/22 Follow Up: 1 Year From Orig ina Mammogram Procedure(s): MM tomosynthesis screening BI Accession Number(s): [id number] cc: Katie Mcallister MD EXAMINATION: MM SCREENING [...] in OV> 02/26/22 0801 DD/ 1310 TD/TT: Ethnic Origins Teacher: SWIFT Procedure Note Donotuseinterpreter, Image - 02/28/2022 [facility] [address] [place] [address] [place], [place] [address] Mammography Report Signed Patient: Alysa Mcdonald MMR#: [id number] : 1975Acct:[id number] Age/Sex: 46 / FADM Date: 02/24/22 Loc: HO.MAMMO Attending Dr: Katie Mcallister MD Ordering Physician: Katie Mcallister MDResults: 1Negati ve Date of Service: 02/24/22Follow Up: 1 Year From Orig inal Mammogram Procedure(s): MM tomosynthesis screening BI Accession Number(s): [id number] cc: Katie Mcallister MD EXAMINATION: MM SCREENING [...] in OV> 02/26/22 0801 DD/ 1310 TD/TT: Ethnic Origins Teacher: SWIFT us Katie Mcallister MD IMG BI PROCEDURES Final Result from Last 3 Months or Most Recently Relevant to Health Maintenance
--- OUTSIDE RECORDS SUMMARY | 2024-11-23 07:53 | XMS_ITS | Encounter Summary ---
Author Organization [employer] Address [address] [place] [address] [address] [place] [address] Care Team Providers Care Claims Clerk Name Role Phone Katie Mcallister MD Primary Care Provider [phone] Encounter Details Date Type Department Care Team (Late st Contact Info) Description 03/05/2022 Abstract [facility] [address] [place] [address] Provider, MD Racheal Social History Tobacco Use [...] on filedocumented in this encounter Care Teams Claims Clerk Relationship Specialty Start Date End Date Katie Mcallister MD [address] [place] [address] PCP - General Family Medicine 03/11/12 07/20/23 documented as of this encounter
--- NOTE | 2024-11-23 08:01 | MHC.OFFVIS ---
Vital Signs 11/23/24 08:03 Height 4 ft 8 in Weight 134 lb BMI 30.0 BP 124/68 Intake Visit Reasons: ultrasound results Metal Roofing Mechanic Required: No Information Interpreted: non-clinical & clinical Accompanied by: Self / Same As Patient Allergies doxepin (DOXEPIN) Allergy (Severe, Verified 11/23/24 08:05) THROAT SWELLING Penicillins Allergy (Verified 11/23/24 08:05) Itching SEAFOOD Allergy (Severe, Uncoded 11/23/24 08:05) HIVES, THROAT SWELLING seafood Allergy (Unknown, Uncoded 11/23/24 08:05) Anaphylaxis Is last menstrual period known: Yes Last menstrual period: 11/21/24 HPI Comments Details: Presenting for follow-up ultrasound regarding uterine myoma seen on previous pelvic ultrasound. The patient is doing well with no complaints no abnormal uterine bleeding, pelvic pressure or pain. 11/02/2024 Pelvic ultrasound done recently showed the following: Anteverted uterus measures 7.8 x 3.2 x 4.2 cm. Heterogeneous myometrium, no focal lesion or fibroid is seen. scar noted at the anterior lower uterine segment. Normal endometrium, 4 mm in thickness. Unremarkable cervix, subcentimeter nabothian cyst. Normal right ovary, 2.5 x 1.7 x 1.7 cm. No abnormal vascular flow. Normal left ovary, 2.0 x 1.7 x 1.6 cm. No abnormal vascular flow. No free fluid. [facility] Medical History Overweight (BMI 25.0-29.9) Hemorrhoid Acid reflux Constipation Colon cancer screening Herpes Surgical History Hx of cholecystectomy Family History Paternal Aunt Breast cancer Father Thyroid cancer Mother Bladder cancer Female Reproductive History Menstrual Date of last menstrual period: 11/21/24 Review of Systems Const All systems reviewed & are unremarkable except as noted in HPI and below Reports as per HPI and Reports no additional complaints GI Reports no additional complaints Reports no additional complaints Physical Exam Vital Signs: Last Vital Signs BP 124/68 11/23/24 08:03 BMI result Body Mass Index 30.0 Assessment & Plan Assessment & Plan (1) Uterine myoma: Code(s): D25.9 - Leiomyoma of uterus, unspecified Category: Medical Plan: Discussed with the patient the results the of the ultrasound done in 11/20, no evidence of uterine myoma, the patient was reassured. All questions answered the patient verbalized understanding Coding Level of Care Code Est Pt Level 3 (64398) Diagnoses Uterine myoma D25.9
[2024-11-23 08:03] VITALS: BP 124/68
== END 2024-11-23 08:12 | disposition home or self-care (01) ==
LOC: HO.HWS 07:50
PROVIDERS: PCP Internal Medicine; Visit Provider Obstetrics & Gynecology
DX: D25.9 Leiomyoma of uterus, unspecified (principal)
CPT/HCPCS: 99213